=== PATIENT | male | born 1955 | race Asian ===

== ENCOUNTER → 2017-09-25 | Outpatient (CLI) | payer OTHER ==
[2017-09-25 10:27] LABS: BASO # 0.1 10^3/uL (0.0-0.2); BASO % 0.8 % (0.0-1.0); EOS # 0.1 10^3/uL (0.0-0.50); EOS % 1.7 % (0.0-3.0); HEMATOCRIT 46.9 % (42.0-52.0); IMMATURE GRANULOCYTE % 0.2 % (0-3.0); LYMPH # 2.3 10^3/uL (1.5-4.5); LYMPH % 27.3 % (24.0-44.0); MEAN CORPUSCULAR HEMOGLOBIN 30.1 pg (27.0-33.0); MEAN CORPUSCULAR HGB CONC 34.1 g/dl (32.0-36.5); MEAN CORPUSCULAR VOLUME 88.2 fl (80.0-96.0); MONO # 0.8 10^3/uL (0.0-0.8); MONO % 9.1 % (0.0-5.0); NEUTROPHILS # 5.1 10^3/uL (1.8-7.7); NEUTROPHILS % 60.9 % (36.0-66.0); PLATELET COUNT, AUTOMATED 249 10^3/uL (150-450); RED BLOOD COUNT 5.32 10^6/uL (4.30-6.10); RED CELL DISTRIBUTION WIDTH 11.8 % (11.5-14.5); WHITE BLOOD COUNT 8.4 10^3/uL (4.0-10.0)
[2017-09-25 10:39] LABS: ANION GAP 3 MEQ/L (8-16); BLOOD UREA NITROGEN 14 MG/DL (7-18); CALCIUM LEVEL 8.9 MG/DL (8.8-10.2); CARBON DIOXIDE LEVEL 33 MEQ/L (21-32); CHLORIDE LEVEL 106 MEQ/L (98-107); CREATININE FOR GFR 0.82 MG/DL (0.70-1.30); GLOMERULAR FILTRATION RATE > 60.0 (>49); GLUCOSE, FASTING 90 MG/DL (70-100); POTASSIUM SERUM 4.6 MEQ/L (3.5-5.1); SODIUM LEVEL 142 MEQ/L (136-145)
== END ==
LOC: M LAB 09:58
DX: K57.30 Diverticulosis of large intestine without perforation or abscess without bleeding (principal)
CPT/HCPCS: 80048

== ENCOUNTER → 2017-10-01 | Outpatient (CLI) | payer OTHER ==
[~2017-10-01] MED LIST: GASTROGRAFIN SOLUTION 30ML (Q9963) As Ordered; ISOVUE-370 76% 100ML VIAL (Q9967) As Ordered
== END ==
LOC: M RAD 14:03
DX: R10.84 Generalized abdominal pain (principal)
CPT/HCPCS: Q9963

== ENCOUNTER → 2017-12-18 | Outpatient (CLI) | payer OTHER ==
[2017-12-18 14:14] LABS: FREE T4 0.93 NG/DL (0.76-1.46); THYROID STIMULATING HORMONE 0.962 uIU/ML (0.358-3.740)
[2017-12-19 10:20] LABS: TISSUE TRANSGLUTAMINASE IgA <2 U/mL (0-3)
== END ==
LOC: M LAB 12:42
DX: R19.4 Change in bowel habit (principal)

== ENCOUNTER → 2017-12-19 | Outpatient (REF) | payer OTHER | LOC: M LAB REF 10:39 | DX: R19.4 Change in bowel habit (principal) ==

== ENCOUNTER 2018-01-17 08:21 | Day surgery (SDC) | payer OTHER ==
[~2018-01-17 08:21] MED LIST changes: -GASTROGRAFIN SOLUTION 30ML (Q9963) As Ordered; -ISOVUE-370 76% 100ML VIAL (Q9967) As Ordered; +LIDOCAINE 2% INJ 100 MG/5 ML SDV (FOR ANES.) As Ordered; +MIDAZOLAM INJ 2 MG/2 ML VIAL (J2250) As Ordered; +PROPOFOL 200 MG/20 ML VIAL As Ordered; +fentaNYL 100 MCG/2 ML INJECTION (J3010) As Ordered
[2018-01-17] MEDS ORDERED: LR 1,000 ML IV (08:45)
[2018-01-17] MEDS ORDERED: KETOROLAC 60 MG/2 ML VIAL (J1885) As Ordered (09:21)
[2018-01-17] MEDS ORDERED: ONDANSETRON 4MG/2ML VIAL (J2405) As Ordered (09:21)
[2018-01-17] MEDS ORDERED: GLYCOPYRROLATE INJ 0.2 MG/ML 2 ML VIAL As Ordered (10:27)
[2018-01-17] MEDS: BUPIVACAINE HCL 0.5% 10 ML VIAL As Ordered (10:30)
[2018-01-17] MEDS: LIDOCAINE 2% MDV 20 ML VIAL As Ordered (10:30)
[2018-01-17] MEDS ORDERED: ePHEDrine SULFATE 25 MG/5 ML(5MG/ML) SYRINGE As Ordered (10:42)
[2018-01-17] MEDS: dexameTHASONE 4 MG/ML 1ML VIAL (J1100) As Ordered (10:54)
[2018-01-17] MEDS: BACITRACIN PWD 50,000 UNITS VIAL As Ordered (10:56)
[2018-01-17] MEDS: NEOSPORIN GU IRRIG 20 ML VIAL As Ordered (10:57)
[2018-01-17] MEDS ORDERED: PROPOFOL 200 MG/20 ML VIAL As Ordered ×2 (11:23→12:38)
[2018-01-17] MEDS ORDERED: dexameTHASONE 4 MG/ML 1ML VIAL (J1100) As Ordered (12:36)
== END 2018-01-17 15:40 | disposition home or self-care (01) ==
LOC: M SDC 08:21
DX: M20.11 Hallux valgus (acquired), right foot (principal); M21.621 Bunionette of right foot; Z79.82 Long term (current) use of aspirin
CPT/HCPCS: 28296

== ENCOUNTER 2018-02-02 20:45 | Emergency (ER) | payer OTHER | END 2018-02-02 22:12 | disposition home or self-care (01) | LOC: M ED 20:45 | DX: R03.0 Elevated blood-pressure reading, without diagnosis of hypertension (principal); E78.5 Hyperlipidemia, unspecified; Z98.890 Other specified postprocedural states; Z79.82 Long term (current) use of aspirin; Z79.899 Other long term (current) drug therapy | CPT/HCPCS: 99282 ==

== ENCOUNTER 2018-02-17 07:56 | Day surgery (SDC) | payer OTHER ==
[2018-02-17] MEDS: NS 1,000 ML IV (08:00)
[2018-02-17] MEDS ORDERED: PROPOFOL 200 MG/20 ML VIAL As Ordered (08:17)
== END 2018-02-17 10:25 | disposition home or self-care (01) ==
LOC: M OPP 07:56
DX: R19.4 Change in bowel habit (principal); R19.7 Diarrhea, unspecified; R14.0 Abdominal distension (gaseous); K64.8 Other hemorrhoids; E78.5 Hyperlipidemia, unspecified; R00.1 Bradycardia, unspecified; R06.83 Snoring; Z79.82 Long term (current) use of aspirin; Z79.899 Other long term (current) drug therapy; Z80.0 Family history of malignant neoplasm of digestive organs
CPT/HCPCS: 45380

== ENCOUNTER 2019-01-26 20:53 | Emergency (ER) | payer OTHER ==
[~2019-01-26] VITALS: Ht 172.7 cm; Wt 80.2 kg
[~2019-01-26 20:53] MED LIST changes: +ASPI81TA26 PO; +CINN500T PO; +CLAR10CA3 PO; +DICY1CAP8 PO; -LIDOCAINE 2% INJ 100 MG/5 ML SDV (FOR ANES.) As Ordered; -MIDAZOLAM INJ 2 MG/2 ML VIAL (J2250) As Ordered; +MULT1TAB10 PO; +OMEG10002 PO; -PROPOFOL 200 MG/20 ML VIAL As Ordered; +SIMV20TA2 PO; -fentaNYL 100 MCG/2 ML INJECTION (J3010) As Ordered
[2019-01-26] MEDS ORDERED: HYDR25TAB PO (21:09)
[2019-01-26] MEDS ORDERED: CRES40TA PO (21:09)
[2019-01-26 22:14] LABS: BASO # 0.1 10^3/uL (0.0-0.2); BASO % 0.7 % (0.0-1.0); EOS # 0.2 10^3/uL (0.0-0.50); EOS % 1.6 % (0.0-3.0); HEMATOCRIT 42.9 % (42.0-52.0); HEMOGLOBIN 14.6 g/dl (13.5-17.5); LYMPH # 1.8 10^3/uL (1.5-4.5); LYMPH % 19.5 % (24.0-44.0); MEAN CORPUSCULAR HEMOGLOBIN 30.7 pg (27.0-33.0); MEAN CORPUSCULAR VOLUME 90.3 fl (80.0-96.0); MONO # 0.8 10^3/uL (0.0-0.8); MONO % 8.2 % (0.0-5.0); NEUTROPHILS # 6.6 10^3/uL (1.8-7.7); NEUTROPHILS % 69.8 % (36.0-66.0); PLATELET COUNT, AUTOMATED 194 10^3/uL (150-450); RED BLOOD COUNT 4.75 10^6/uL (4.30-6.10); WHITE BLOOD COUNT 9.4 10^3/uL (4.0-10.0)
[2019-01-26 22:27] LABS: INR 0.99; PROTHROMBIN TIME 12.8 SECONDS (11.8-14.0)
[2019-01-26 22:41] LABS: ALBUMIN 3.5 GM/DL (3.2-5.2); ALT/SGPT 31 U/L (12-78); BILIRUBIN,DIRECT 0.2 MG/DL (0.0-0.2); BILIRUBIN,TOTAL 0.5 MG/DL (0.2-1.0); BLOOD UREA NITROGEN 16 MG/DL (7-18); CALCIUM LEVEL 8.7 MG/DL (8.8-10.2); CARBON DIOXIDE LEVEL 33 MEQ/L (21-32); CHLORIDE LEVEL 103 MEQ/L (98-107); CPK CREATINE PHOSPHOKINASE 165 U/L (39-308); FREE T4 0.91 NG/DL (0.76-1.46); GLOMERULAR FILTRATION RATE > 60.0 (>49); GLUCOSE, FASTING 105 MG/DL (70-100); MB/CK RELATIVE INDEX 1.82 (< OR =4); POTASSIUM SERUM 3.8 MEQ/L (3.5-5.1); SODIUM LEVEL 140 MEQ/L (136-145); TOTAL PROTEIN 6.7 GM/DL (6.4-8.2); TROPONIN I 0.04 NG/ML (< 0.10)
--- NOTE | 2019-01-26 22:49 | REPVR ---
EXAM: CT Head Without Contrast EXAM DATE/TIME: 01/26/2019 10:30 PM CLINICAL HISTORY: 63 years old, male; Pain; Headache; Additional info: Headache HTN TECHNIQUE: Imaging protocol: Computed tomography images of the head without contrast. Radiation optimization: All CT scans at this facility use at least one of these dose optimization techniques: automated exposure control; mA and/or kV adjustment per patient size (includes targeted exams where dose is matched to clinical indication); or iterative reconstruction. COMPARISON: CT Head without contrast 02/01/2015 2:30 PM FINDINGS: Brain: No CT evidence of acute intracranial hemorrhage or acute territorial infarction. No significant mass effect or midline shift. Basal cisterns patent. Ventricles: Normal in size and configuration. Bones/joints: No acute osseous abnormality. Sinuses: Mild ethmoid mucosal thickening. Mastoid air cells: Grossly unremarkable. Soft tissues: Grossly unremarkable. IMPRESSION: 1. No CT evidence of acute intracranial pathology. 2. Additional findings, as above. Electronically signed by: Pascual Suazo On 01/26/2019 22:49:22 PM
[2019-01-27] MEDS ORDERED: ISOVUE-370 76% 100ML VIAL (Q9967) As Ordered ONE (00:50)
--- NOTE | 2019-01-27 01:15 | REPVR ---
EXAM: CT Angiography Head With Contrast EXAM DATE/TIME: 01/26/2019 11:11 PM CLINICAL HISTORY: 63 years old, male; Dizziness and giddiness; Additional info: Posterior neck pain, dizzy TECHNIQUE: Imaging protocol: Computed tomographic angiography images of the head with intravenous contrast using CT angiography protocol. Coronal and sagittal reformatted images were created and reviewed. 3D rendering: MIP reconstructed images were created and reviewed. Radiation optimization: All CT scans at this facility use at least one of these dose optimization techniques: automated exposure control; mA and/or kV adjustment per patient size (includes targeted exams where dose is matched to clinical indication); or iterative reconstruction. Contrast material: ISO; Contrast volume: 100 ml; Contrast route: AC; COMPARISON: CT Head without contrast 01/26/2019 10:22 PM FINDINGS: Right internal carotid artery: Unremarkable. Intracranial segment is patent with no significant stenosis. No aneurysm. Right anterior cerebral artery: Unremarkable. No occlusion or significant stenosis. No aneurysm. Right middle cerebral artery: Unremarkable. No occlusion or significant stenosis. No aneurysm. Right posterior cerebral artery: Unremarkable. No occlusion or significant stenosis. No aneurysm. Right vertebral artery: Unremarkable. No occlusion or significant stenosis. No aneurysm. Left internal carotid artery: Unremarkable. Intracranial segment is patent with no significant stenosis. No aneurysm. Left anterior cerebral artery: Unremarkable. No occlusion or significant stenosis. No aneurysm. Left middle cerebral artery: Unremarkable. No occlusion or significant stenosis. No aneurysm. Left posterior cerebral artery: Unremarkable. No occlusion or significant stenosis. No aneurysm. Left vertebral artery: Unremarkable. No occlusion or significant stenosis. No aneurysm. Basilar artery: Unremarkable. No occlusion or significant stenosis. No aneurysm. IMPRESSION: No acute findings. Electronically signed by: Pascual Suazo On 01/27/2019 01:14:21 AM
[2019-01-27 01:16] VITALS: BP 126/61
--- NOTE | 2019-01-27 01:18 | REPVR ---
EXAM: CT Angiography Neck With Contrast EXAM DATE/TIME: 01/26/2019 11:11 PM CLINICAL HISTORY: 63 years old, male; Other: Neck pain posterior; Additional info: Posterior neck pain TECHNIQUE: Imaging protocol: Axial computed tomographic angiography images of the neck with intravenous contrast using CT angiography protocol. Coronal and sagittal reformatted images were created and reviewed. 3D rendering: MIP reconstructed images were created and reviewed. Radiation optimization: All CT scans at this facility use at least one of these dose optimization techniques: automated exposure control; mA and/or kV adjustment per patient size (includes targeted exams where dose is matched to clinical indication); or iterative reconstruction. Contrast material: ISO; Contrast volume: 100 ml; Contrast route: AC; COMPARISON: No relevant prior studies available. FINDINGS: VASCULATURE: Right common carotid artery: Unremarkable. No stenosis. No dissection or occlusion. Right internal carotid artery: Mild atherosclerotic calcification of the carotid bulb and proximal internal carotid artery. No hemodynamically significant stenosis. No dissection or occlusion. Right external carotid artery: Unremarkable. No occlusion or stenosis of the origin. Right vertebral artery: Unremarkable. No stenosis. No dissection or occlusion. Left common carotid artery: Unremarkable. No stenosis. No dissection or occlusion. Left internal carotid artery: Normal. Extracranial segment patent with no significant stenosis. No dissection or occlusion. Left external carotid artery: Unremarkable. No occlusion or stenosis of the origin. Left vertebral artery: Unremarkable. No stenosis. No dissection or occlusion. NECK: Bones/joints: No acute osseous abnormality. Mild multilevel degenerative changes, characterized by disc space narrowing, osteophytosis and uncovertebral and facet joint hypertrophy. Mild multilevel spinal canal and neural foraminal narrowing. Soft tissues: Unremarkable. IMPRESSION: No acute findings. COMMENT: Reference per NASCET criteria for degree of stenosis: Mild: less than 50% stenosis. Moderate: 50-69% stenosis. Severe: 70-94% stenosis. Near occlusion: 95-99% stenosis. Electronically signed by: Pascual Suazo On 01/27/2019 01:18:11 AM
--- NOTE | 2019-01-27 02:53 | REP ---
Clinical: Acute chest pain . Comparison: None . Technique: PA and lateral. Findings: The mediastinum and cardiac silhouette are normal. The lung duarte are clear and without acute consolidation, effusion, or pneumothorax. The skeletal structures are intact and normal. Impression: 1. No acute cardiopulmonary process. Electronically Signed by Tim Brizuela MD 01/27/2019 02:45 A
--- NOTE | 2019-01-27 05:42 | ECGEPIP ---
[facility] - ED Test Date: 2019-01-26 Pat Name: SHEMAR HUMPHREYS Department: Room: - Gender: Male [employer] Belt: KEIRY : 1955 Requested By: CHAIM Tamez Order Number: [id number] Reading MD: Jose Rowell Measurements Intervals [place] Rate: 59 P: 38 [place]: 175 QRS: 16 QRSD: 112 T: 95 QT: 390 QTc: 387 Interpretive Statements SINUS BRADYCARDIA INCOMPLETE RIGHT BUNDLE BRANCH BLOCK ST DEVIATION AND MODERATE T-WAVE ABNORMALITY, CONSIDER LATERAL ISCHEMIA SIMILAR TO 02/01/15 Electronically Signed on 01-27-2019 5:41:52 EDT by Jose Rowell
== END 2019-01-27 01:55 | disposition home or self-care (01) ==
LOC: M ED 20:53
DX: I10 Essential (primary) hypertension (principal); R42 Dizziness and giddiness; I45.19 Other right bundle-branch block; R00.1 Bradycardia, unspecified; E78.5 Hyperlipidemia, unspecified; K21.9 Gastro-esophageal reflux disease without esophagitis; Z79.82 Long term (current) use of aspirin; Z79.899 Other long term (current) drug therapy
CPT/HCPCS: 70450; 70496; 70498; 71046; 80048; 80076; 82550; 82553; 84439; 84443; 84484; 85025; 85610; 85730; 93005; 93041; 94760; 99285; Q9967

== ENCOUNTER → 2019-03-13 | Outpatient (CLI) | payer OTHER ==
[~2019-03-13] MED LIST changes: +CRES40TA PO; +HYDR25TAB PO
--- NOTE | 2019-03-13 11:58 | REP ---
Clinical: History of hypertension and heart disease . Technique: Enriquez scale and color Doppler evaluation using linear high frequency transducer Findings: Two-dimensional enriquez scale and color images demonstrate mild bilateral intimal thickening with normal arterial lumen, laminar flow and no appreciable narrowing. Color Doppler interrogation demonstrates normal arterial wave patterns and velocities with no significant spectral broadening. Normal flow direction is appreciated in the bilateral vertebral arteries. RIGHT (cm/s) LEFT (cm/s) ICA peak systolic velocity 70.0 82.4 ICA diastolic velocity 24.9 29.8 ECA peak systolic velocity 53.3 66.7 CCA peak systolic velocity 115.0 87.4 ICA/CCA ratio 0.6 0.9 Impression: No hemodynamically significant areas of narrowing or stenosis appreciated. Based on set standards narrowing falls within the less than 50% range. Electronically Signed by Tim Brizuela MD 03/13/2019 11:51 A
== END ==
LOC: M RAD 10:54
PROVIDERS: ATTEND Physician Assistant
DX: I65.23 Occlusion and stenosis of bilateral carotid arteries (principal)

== ENCOUNTER 2020-05-24 14:22 | Emergency (ER) | payer OTHER ==
[~2020-05-24] VITALS: Ht 172.7 cm; Wt 75.1 kg
[~2020-05-24 14:22] MED LIST changes: -SIMV20TA2 PO; +SIMV20TA22 PO
[2020-05-24 15:07] LABS: BASO % 0.3 % (0.0-1.0); EOS % 0.3 % (0.0-3.0); HEMATOCRIT 47.8 % (42.0-52.0); HEMOGLOBIN 15.5 g/dl (13.5-17.5); LYMPH # 1.4 10^3/uL (1.5-5.0); LYMPH % 11.5 % (24.0-44.0); MEAN CORPUSCULAR HEMOGLOBIN 29.5 pg (27.0-33.0); MEAN CORPUSCULAR HGB CONC 32.4 g/dl (32.0-36.5); MEAN CORPUSCULAR VOLUME 90.9 fl (80.0-96.0); MONO # 0.7 10^3/uL (0.0-0.8); MONO % 5.8 % (0.0-5.0); NEUTROPHILS # 9.8 10^3/uL (1.5-8.5); NEUTROPHILS % 81.7 % (36.0-66.0); PLATELET COUNT, AUTOMATED 221 10^3/uL (150-450); RED BLOOD COUNT 5.26 10^6/uL (4.30-6.10)
--- NOTE | 2020-05-24 15:23 | REP ---
INDICATION: CHEST PAIN. COMPARISON: 01/26/2019. TECHNIQUE: SINGLE PORTABLE AP VIEW OF THE CHEST WAS PERFORMED. FINDINGS: THERE IS NO ACUTE INFILTRATE OR PULMONARY EDEMA. LUNGS ARE CLEAR. HEART IS NOT SIGNIFICANTLY ENLARGED. MEDIASTINAL SILHOUETTE IS UNREMARKABLE. THE VISUALIZED OSSEOUS STRUCTURES ARE INTACT.There are degenerative changes of the spine. IMPRESSION: NO ACUTE PULMONARY DISEASE. <Electronically signed by Rashel Enriquez > 05/24/20 1770
[2020-05-24 15:24] LABS: INR 0.89; PROTHROMBIN TIME 12.2 SECONDS (12.5-14.3)
[2020-05-24 15:25] LABS: PARTIAL THROMBOPLASTIN TIME 33.2 SECONDS (24.2-38.5)
[2020-05-24 15:53] LABS: ALBUMIN 4.3 GM/DL (3.2-5.2); ALT/SGPT 47 U/L (12-78); BILIRUBIN,DIRECT 0.2 MG/DL (0.0-0.2); BILIRUBIN,TOTAL 0.7 MG/DL (0.2-1.0); BLOOD UREA NITROGEN 15 MG/DL (7-18); CALCIUM LEVEL 9.5 MG/DL (8.8-10.2); CARBON DIOXIDE LEVEL 29 MEQ/L (21-32); CHLORIDE LEVEL 105 MEQ/L (98-107); CK-MB VALUE MASS 4.5 NG/ML (<3.6); CPK CREATINE PHOSPHOKINASE 195 U/L (39-308); CREATININE FOR GFR 0.86 MG/DL (0.70-1.30); FREE T4 0.94 NG/DL (0.76-1.46); GLOMERULAR FILTRATION RATE > 60.0 (>49); GLUCOSE, FASTING 87 MG/DL (70-100); LIPASE 148 U/L (73-393); MB/CK RELATIVE INDEX 2.31 (< OR =4); POTASSIUM SERUM 3.5 MEQ/L (3.5-5.1); SODIUM LEVEL 138 MEQ/L (136-145); TOTAL PROTEIN 8.3 GM/DL (6.4-8.2); TROPONIN I 0.04 NG/ML (< 0.10)
[2020-05-24 19:04] LABS: CK-MB VALUE MASS 3.3 NG/ML (<3.6); MB/CK RELATIVE INDEX 2.03 (< OR =4); TROPONIN I 0.04 NG/ML (< 0.10)
[2020-05-24] MEDS ORDERED: ASPIRIN 325 MG TAB PO ONE (19:15)
[2020-05-24] MEDS ORDERED: ASPI81TA26 PO (19:16)
[2020-05-24 19:31] VITALS: BP 128/72
--- NOTE | 2020-05-24 21:19 | ECGEPIP ---
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
--- NOTE | 2020-05-24 21:26 | ECGEPIP ---
[facility] - ED Test Date: 2020-05-24 Pat Name: SHEMAR HUMPHREYS Department: Room: - Gender: Male [employer]: min : 1955 Requested By: CAMERON ROSALES Order Number: [id number] Reading MD: Esa Emery Measurements Intervals [place] Rate: 49 P: 7 [place]: 171 QRS: 41 QRSD: 92 T: 46 QT: 414 QTc: 376 Interpretive Statements SINUS BRADYCARDIA WITH OCCASIONAL SUPRAVENTRICULAR PREMATURE COMPLEXES Nonspecific T wave abnormality Rate decreased from tracing done 1506 on same date Electronically Signed on 05-24-2020 21:26:24 EST by Esa Emery
== END 2020-05-24 19:34 | disposition home or self-care (01) ==
LOC: M ED 14:22
DX: R07.9 Chest pain, unspecified (principal); I10 Essential (primary) hypertension; E78.5 Hyperlipidemia, unspecified

== ENCOUNTER → 2020-11-05 | Outpatient (CLI) | payer SELFPAY ==
[~2020-11-05] MED LIST changes: +HYDR-3490 PO; -HYDR25TAB PO
== END ==
LOC: M LABSMTC 09:33
PROVIDERS: ATTEND Pediatrics
DX: Z20.822 Contact with and (suspected) exposure to COVID-19 (principal)

== ENCOUNTER → 2021-02-08 | Outpatient (CLI) | payer MEDICARE, OTHER ==
[2021-02-08 17:07] LABS: BASO # 0.1 10^3/uL (0.0-0.2); EOS # 0.1 10^3/uL (0.0-0.5); EOS % 1.4 % (0.0-3.0); HEMATOCRIT 45.8 % (42.0-52.0); HEMOGLOBIN 15.1 g/dl (13.5-17.5); LYMPH # 1.8 10^3/uL (1.5-5.0); LYMPH % 29.3 % (24.0-44.0); MEAN CORPUSCULAR HEMOGLOBIN 30.3 pg (27.0-33.0); MEAN CORPUSCULAR VOLUME 91.8 fl (80.0-96.0); MONO # 0.6 10^3/uL (0.0-0.8); MONO % 9.2 % (2.0-8.0); NEUTROPHILS # 3.7 10^3/uL (1.5-8.5); NEUTROPHILS % 58.9 % (36.0-66.0); PLATELET COUNT, AUTOMATED 208 10^3/uL (150-450); RED BLOOD COUNT 4.99 10^6/uL (4.30-6.10); WHITE BLOOD COUNT 6.3 10^3/uL (4.0-10.0)
[2021-02-08 17:41] LABS: ALT/SGPT 44 U/L (12-78); BILIRUBIN,TOTAL 0.9 MG/DL (0.2-1.0); BLOOD UREA NITROGEN 11 MG/DL (7-18); CARBON DIOXIDE LEVEL 30 MEQ/L (21-32); CHLORIDE LEVEL 103 MEQ/L (98-107); CREATININE FOR GFR 0.75 MG/DL (0.70-1.30); GLOMERULAR FILTRATION RATE > 60.0 (>49); GLUCOSE, FASTING 97 MG/DL (70-100); LIPASE 105 U/L (73-393); POTASSIUM SERUM 4.2 MEQ/L (3.5-5.1); SODIUM LEVEL 138 MEQ/L (136-145); TOTAL PROTEIN 7.2 GM/DL (6.4-8.2)
== END ==
LOC: M WUC 10:28
PROVIDERS: ATTEND Physician Assistant
DX: R10.12 Left upper quadrant pain (principal)

== ENCOUNTER → 2021-02-09 | Outpatient (CLI) | payer MEDICARE, OTHER ==
--- NOTE | 2021-02-09 08:51 | REP ---
INDICATION: LUQ PAIN. COMPARISON: None. TECHNIQUE: Transabdominal scanning FINDINGS: The spleen measures 10.6 x 4.8 x 8.9 cm. The volumetric index calculation is 453 cc which is within normal limits. The left kidney measures 10.2 x 4.6 x 5.3 cm. No abnormalities are noted. There is no free fluid. IMPRESSION: Findings are within normal limits. <Electronically signed by Iftikhar Villa > 02/09/21 2524
== END ==
LOC: M RAD 08:09
PROVIDERS: ATTEND Physician Assistant
DX: R10.12 Left upper quadrant pain (principal)